=== PATIENT | female | born 1945 | race Caucasian/White ===

== ENCOUNTER 2017-01-02 14:48 | Outpatient (CLI) | payer MEDICARE ==
[2017-01-02 20:38] LABS: Hemoglobin A1c 7.5 % (4.0-6.0)
== END 2017-01-02 14:49 | disposition home or self-care (01) ==
LOC: NAV LABSP 14:48
PROVIDERS: ATTEND Acupuncturist
DX: E11.69 Type 2 diabetes mellitus with other specified complication (principal)
CPT/HCPCS: 83036

== ENCOUNTER 2017-03-19 16:17 | Outpatient (CLI) | payer MEDICARE | END 2017-03-19 16:18 | disposition home or self-care (01) | LOC: NAV LABSP 16:17 | PROVIDERS: ATTEND Family Medicine | DX: T81.4XXA Infection following a procedure, initial encounter (principal) | CPT/HCPCS: 87070; 87077; 87186; 87205 ==

== ENCOUNTER 2017-04-10 15:35 | Outpatient (CLI) | payer MEDICARE ==
[2017-04-10 20:26] LABS: Hemoglobin A1c 8.2 % (4.0-6.0)
== END 2017-04-10 15:36 | disposition home or self-care (01) ==
LOC: NAV LABSP 15:35
PROVIDERS: ATTEND Family Medicine
DX: E11.9 Type 2 diabetes mellitus without complications (principal)
CPT/HCPCS: 83036